=== PATIENT | male | born 1955 | race Caucasian/White ===

== ENCOUNTER 2024-03-10 00:56 | Day surgery (SDC) | payer MEDICARE, SELFPAY ==
[2024-02-18 15:43] VITALS: BMI 25.1
--- NOTE | 2024-03-10 13:54 | P.PNAN_ITS ---
Anes - Initial Pre Proc Eval Procedure: Operation Date: 03/10/24 15:00 Proposed Procedures p Flexible Sigmoidoscopy - Ciaran Valenzuela MD Date/Time: 03/10/24 13:54 Surgeon: Ciaran Valenzuela MD Pre Op Diagnosis: Full incontinence of Feces, CIBH,hemorrhoids Patient Data Age: 68 Gender: M Height: 1.83 m Weight: 84 kg Allergies Allergy/AdvReac Type Severity Reaction Status Date / Time ciprofloxacin [From Cipro] Allergy Unknown Unknown Verified 03/10/24 13:53 Home Medications Medication Instructions Recorded Confirmed Type fish, borage, flaxseed oils-omega 1 cap PO DAILY 01/06/24 02/18/24 History 3,6,9 comb no.1 1,200 mg capsule ([place] 3-6-9) gabapentin 300 mg capsule 300 mg PO DAILY 01/06/24 02/18/24 History ibuprofen 600 mg PO DAILY PRN Headache 01/06/24 02/18/24 History lisinopril 5 mg tablet 10 mg PO DAILY 01/06/24 02/18/24 History magnesium 200 mg tablet 400 mg PO DAILY 01/06/24 02/18/24 History primidone 250 mg tablet 250 mg PO QHS 01/06/24 02/18/24 History Patient hx anesthesia problems: none Family hx anesthesia problems: none Results Review: All pre-operative results and documents have been reviewed as part of the pre- operative evaluation. [facility] Past Medical History Medical History (Updated 03/10/24 @ 13:54 by Mainor Gale MD) HTN (hypertension) Surgical History Surgical History (Updated 03/10/24 @ 13:54 by Mainor Gale MD) History of total knee arthroplasty Family History Family History Father Cerebrovascular accident Thyroid disorder Mother Diabetes mellitus Social History Social History Smoking status: Never smoker Second hand tobacco smoke exposure: No Alcohol intake: never Substance use: never Substance use type: does not use Do You Feel Safe in your Home?: Yes Lack of Transportation: No Lack of Food: Never True Current Housing: I Have Housing Concerned About Future Housing: No Difficulty Paying Gas/Electric Bills: No Difficulty Paying for Meds: No Currently Unemployed: No Education: Bachelor's Degree Living arrangements: other Additional living arrangements comments: with sp Occupation/Education: retired Additional occupation/education comments: 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 Gender identity (if verbalized by the patient): Male Sexual Orientation (if Verbalized by the Patient): Straight or Heterosexual Spiritual care concerns: No Agree to blood products: Yes Anes - Eval Final PreProcedure Day of Procedure 03/10/24 13:54 Patient weight: normal Heart: regular rate and rhythm Lungs: clear to auscultation Airway: Mallampati scale class II Neurological: alert and oriented Last oral intake: >/= 8 hours ASA classification: II Emergent: no Anesthetic plan: proceed Anesthesia type and monitoring: general GIVS and standard monitoring Results Review: All pre-operative results and documents have been reviewed as part of the pre- operative evaluation. Informed Consent: The patient's anesthetic plan and its attendant risks and benefits were discussed with the patient/family/POA. Questions were solicited and answers provided to the satisfaction of the patient/family/POA.
[2024-03-10 13:55] VITALS: BP 116/82; PULSE 87; RESP 19; TEMP 36.4; O2SAT 99
--- NOTE | 2024-03-10 13:55 | PM.HPGS ---
History of Present Illness History of Present Illness Consent: Risks, benefits, and alternatives have been discussed and questions answered. Patient agrees to proceed with procedure. Chief complaint: Full incontinence of Feces, CIBH,hemorrhoids Narrative: Monty Ackerman is a 68 year old male here for sigmoidoscopy, last colonoscopy 2020 elsewhere. He noted change in bowel habits and states that he is having a formed non urgent bowel movement every 1-2 days but they often require straining and he does not feel like he is completely evacuating. During this time he also started having intermittent fecal leakage Review of Systems Review of Systems: All systems reviewed & are unremarkable except as noted in HPI and below PMFSH Past Medical History Medical History (Updated 03/10/24 @ 13:54 by Mainor Gale MD) HTN (hypertension) Surgical History Surgical History (Updated 03/10/24 @ 13:54 by Mainor Gale MD) History of total knee arthroplasty Family History Family History Father Cerebrovascular accident Thyroid disorder Mother Diabetes mellitus Social History Social History Smoking status: Never smoker Second hand tobacco smoke exposure: No Alcohol intake: never Substance use: never Substance use type: does not use Do You Feel Safe in your Home?: Yes Lack of Transportation: No Lack of Food: Never True Current Housing: I Have Housing Concerned About Future Housing: No Difficulty Paying Gas/Electric Bills: No Difficulty Paying for Meds: No Currently Unemployed: No Education: Bachelor's Degree Living arrangements: other Additional living arrangements comments: with sp Occupation/Education: retired Additional occupation/education comments: 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 Gender identity (if verbalized by the patient): Male Sexual Orientation (if Verbalized by the Patient): Straight or Heterosexual Spiritual care concerns: No Agree to blood products: Yes Meds Home Medications and Allergies Home Medications Medication Instructions Recorded Confirmed Type fish, borage, flaxseed oils-omega 1 cap PO DAILY 01/06/24 02/18/24 History 3,6,9 comb no.1 1,200 mg capsule ([place] 3-6-9) gabapentin 300 mg capsule 300 mg PO DAILY 01/06/24 02/18/24 History ibuprofen 600 mg PO DAILY PRN Headache 01/06/24 02/18/24 History lisinopril 5 mg tablet 10 mg PO DAILY 01/06/24 02/18/24 History magnesium 200 mg tablet 400 mg PO DAILY 01/06/24 02/18/24 History primidone 250 mg tablet 250 mg PO QHS 01/06/24 02/18/24 History Allergies Allergy/AdvReac Type Severity Reaction Status Date / Time ciprofloxacin [From Cipro] Allergy Unknown Unknown Verified 03/10/24 13:53 Exam Const: General: comfortable and no acute distress HENMT: Face/Nose/Sinus: Normal nares present Eyes: General: appearance normal, both eyes and all related structures Neck: Neck: no JVD Resp: Auscultation: clear to auscultation bilaterally Cardio: Rate: regular rate Rhythm: regular rhythm GI: Inspection: non-distended GI Palp: Yes Soft to palpation Skin: General skin exam: normal color Neuro: General: gait normal Speech: normal speech Extrem: General: normal to inspection Psych: Mental Status: mental status grossly normal Assessment and Plan Assessment and plan (1) Change in bowel habits: Code(s): R19.4 - Change in bowel habit Status: Acute Assessment and Plan: sigmoidoscopy
[2024-03-10] MEDS: LACTATED RINGERS 1,000 ML 150 ML IV CONT (13:58)
[2024-03-10 14:20] VITALS: BP 104/71; PULSE 74; RESP 16; O2SAT 99
[2024-03-10 14:30] VITALS: BP 104/72; PULSE 81; RESP 20; O2SAT 98
[2024-03-10 14:40] VITALS: BP 118/76; PULSE 70; RESP 20; O2SAT 99
== END 2024-03-10 14:52 | disposition home or self-care (01) ==
PROVIDERS: PCP Family Medicine; Visit Provider Internal Medicine Gastroenterology
PROC: 0DJD8ZZ Inspection of Lower Intestinal Tract, Via Natural or Artificial Opening Endoscopic (ICD-10-PCS; CPT 45330; principal; 2024-03-10 15:00)
DX: K57.30 Diverticulosis of large intestine without perforation or abscess without bleeding (principal); K64.8 Other hemorrhoids; K64.4 Residual hemorrhoidal skin tags; K62.3 Rectal prolapse; I10 Essential (primary) hypertension
CPT/HCPCS: 45380; 88305; J2704; J7120

== ENCOUNTER 2025-01-25 08:20 | Outpatient (CLI) | payer MEDICARE, SELFPAY ==
--- OUTSIDE RECORDS SUMMARY | 2025-01-25 08:23 | XMS_ITS | Clinical Summary ---
Author Organization [facility] Address [address] [place] [address] Care Team Providers Care Captain Fishing Vessel Name Role Phone Bayron Gill MD Primary Care Provider [phone] Medina Serrano MD Unavailable Vibha Martel MD Unavailable Allergies Active Allergy Reactions Criticality Noted Date Comments Ciprofloxacin Hives,Itching,Other (see comment) Low 02/03/2019 Medications aspirin EC 81 MG tablet Take 1 tablet (81 mg total) by mouth daily. Active Lanse-3 Fatty Acids (THE VERY FINEST FISH OIL) Liquid Take 1,600 mg by mouth daily. Active Magnesium Oxide -Mg Supplement 400 MG Cap Take 400 mg by mouth daily. Active Calcium Carb-Cholecalci ferol (CALCIUM HIGH POTENCY/VITAMIN D) 600-5 MG-MCG Tab Take 600 mg by mouth daily. Active Multiple Vitamin (MULTIVITAMIN ADULT OR) Take 1 tablet by mouth daily. Active primidone (MYSOLINE) 250 MG tablet Take 1 tablet (250 mg total) by mouth 3 (three) times daily. Active gabapentin (NEURONTIN) 300 MG capsule Take 1 capsule (300 mg total) by mouth 2 (two) times daily. 11/10/2024 Active lisinopril (PRINIVIL) 10 MG tablet Take 1 tablet (10 mg total) by mouth daily. Active tamsulosin (FLOMAX) 0.4 MG Cap Take 2 capsules (0.8 mg total) by mouth nightly. Active fluticasone propionate (FLONASE) 50 MCG/ACT nasal spray 2 sprays by Each Nostril route daily as needed for Allergies. 01/12/2025 Active ibuprofen (MOTRIN) 400 MG tablet Take 1 tablet (400 mg total) by mouth every 6 (six) hours as needed for Pain. Active acetaminophen (TYLENOL) 325 MG tablet Take 2 tablets (650 mg total) by mouth every 6 (six) hours as needed for Pain. Active Encounters Date Type Department Care Team Description 01/17/2025 Travel from Last 3 Months Social History Tobacco Use Types Packs/Day Years Used Date Smoking Tobacco: Never Smokeless Tobacco: Never Tobacco Cessation:Counseling Given: Not Answered Alcohol Use Standard Drinks/Week Comments Not Currently 0 (1 standard drink = 0.6 oz pur e alcohol) Sex and Gender Information Value Date Recorded Sex Assigned at Not on file Legal Sex Male 4:34 PM CDT Gender Identity Not on file Sexual Orientation Not on file Last Filed Vital Signs Vital Sign Reading Time Taken Comments Blood Pressure - - Pulse - - Temperature - - Respiratory Rate - - Oxygen Saturation - - Inhaled Oxygen Concentration - - Weight 88.5 kg (195 lb) 01/17/2025 3:52 PM CDT Height 182.9 cm (6') 01/17/2025 3:52 PM CDT Body Mass Index 26.45 01/17/2025 3:52 PM CDT Plan of Treatment Upcoming Encounters Date Type Department Care Team (Latest Contact Info) Description 02/07/2025 11:40 AM CDT Hospital Encounter [facility] [address] Vibha Martel MD [facility] [address] [place] [address] 02/07/2025 11:40 AM CDT Anesthesia [place] [address] Dionna Simon, DIRECTOR DATABASE [address] [place] [address] 02/07/2025 11:40 AM CDT - 02/07/2025 12:57 PM CDT Surgery [facility] OR [address] [facility] [place] [address] Vibha Martel MD [address] [place] [id number] TRANSANAL HEMORRHOIDAL DEARTERIALIZATION Scheduled Procedures Name Priority Associated Diagnoses Date/Ti me HEMORRHOIDECTOMY THD HEMORRHOID K64.8 02/07/2025 11:40 AM CDT Health Maintenance Due Date Last Done Comments Colorectal Cancer Screening Colonoscopy (10 Years) 1957 Hepatitis C 1975 Annual Medicare Wellness Visit 2022 DTaP, Tdap and Td Vaccines ( 2 - Td or Tdap) 07/28/2023 07/28/2013 COVID-19 Vaccine (2 - 2023-2 5 season) 2024 09/28/2020 RSV Immunization or 60+ Years (1 - 1-dose 75+ series) 2032 Pneumococcal Vaccine: 50+ Years Completed 01/06/2024 Zoster Vaccines Completed 07/13/2024, 01/06/2024 Meningococcal B Vaccine Aged Out No l onger eligible based on patient's age to complete this topic Meningococcal Vaccine Aged Out No felice russell eligible based on patient's age to complete this topic RSV Immunizations Under 20 Months Aged Out No longer eligible b ased on patient's age to complete this topic Goals Goal Patient Goal Type Associated Problems Recent Progress Patient-Stated? Author Autogenerat ed Goal Care Plan Autogenerated Problem No Annalise Brice RN Medical Devices Implanted Type Area Nuclear Operator Device Identifier Shelf Expiration Date Model / Serial / Lot Knee Components Knee Components Additional Health Concerns Active Problems Noted Date Diagnosed Date Autogenerated Problem 01/24/2025 Insurance [facility] Care Teams Captain Fishing Vessel Relationship Specialty Start Date End Date Bayron Gill MD [address] [place] [address] PCP - General FAMILY PRACTICE 01/18/25 Medina Serrano MD [address] [place] [address] NEUROLOGY 01/18/25 Vibha Martel MD [address] [place] [id number] Surgeon COLON/RECTAL SURGERY 01/18/25
--- OUTSIDE RECORDS SUMMARY | 2025-01-25 08:23 | XMS_ITS | Clinical Summary ---
Author Organization [place] [id number] [facility] Address [address] [place] [address] Care Team Providers Care Medicare Compliance Auditor Name Role Phone No, Physician Primary Care Provider [phone] Allergies Active Allergy Reactions Criticality Noted Date Comments Ciprofloxacin Itching,Other (See comments) Low 02/2024 Medications aspirin 81 mg enteric coated tablet Take 1 tablet (81 mg total) by mouth daily Active lisinopriL (PRINIVIL,ZESTR [place]) 10 mg tablet Take 1 tablet (10 mg total) by mouth daily Active tamsulosin (FLOMAX) 0.4 mg extended release capsule Take 1 capsule (0.4 mg total) by mouth daily Active primidone (MYSOLINE) 250 mg tablet Take 1 tablet (250 mg total) by mouth 2 (two) times a day 180 tablet 3 11/03/2023 Active primidone (MYSOLINE) 250 mg tablet TAKE 1 TAB THREE TIMES A DAY 270 tablet 3 09/29/2024 Active gabapentin (NEURONTIN) 300 mg capsule Take 1 capsule by mouth twice daily 180 capsule 11/10/2024 Active Active Problems Problem Noted Date Diagnosed Date Arthritis 11/03/2023 BPH (benign prostatic hyperplasia) 11/03/2023 Erectile dysfunction 11/03/2023 Hay fever 11/03/2023 Tremor 11/03/2023 Overview (11/03/2023): HANDS Essential tremor 11/13/2021 Assessment & Plan (09/29/2024 12:27 PM ASSISTANT FEDERAL PUBLIC DEFENDER): Mr. Pagan had more tremor that was bothersome. He had more trouble with fine motor tasks, writing and could spill his food occasionally. He was on gabapentin 300 mg bid and primidone 250 mg bid. He took propranolol with no benefit or side effects (unknown dose) and have not tried topiramate. He and his had questions re DBS therapy and their questions were answered. Recommendations Increase primidone 250 mg to 1 tab tid Continue gabapentin 300 mg bid Fall precaution Follow up in [address] Serrano as planned in May Assessment & Plan (11/03/2023 9:15 AM CDT): He had predominantly action and postural tremor worse with writing on the right side that was consistent with essential tremor. He had mild parkinsonism with left hand tremor, facial masking and slowness. He had no rigidity. Overall, he likely had essential tremor though we will need to watch the mild parkinsonism. I would continue this gabapentin and primidone for now. He would benefit from either left VIM DBS or HiFU and we discussed this today. He will think about it. We will send him information for both HIFU and DBS. Sinus bradycardia 06/11/2019 Overview (11/03/2023): 2ND TO BETA JAILENE Surgical History Surgery Date Site/Laterality Comments TOTAL KNEE ARTHROPLASTY HAND SURGERY KNEE ARTHROSCOPY Medical History Medical History Date Comments Hypertension Tremors of nervous system Family History Medical History Relation Name Comments Diabetes Brother Thyroid disease Daughter possible brain bleed Father Essential Tremor Mother Alaina Ackerman Hypothyroidism Mother Alaina Ackerman Memory loss Mother Alaina Ackerman Stroke Mother Alaina Ackerman Tremor Mother Alaina Ackerman Diabetes type II Sister No Known Problems Son Parkinsonism Neg Hx Relation Name Status Comments Brother Alive Daughter Alive Father (Age 89) Mother Alaina Ackerman Alive Sister Son Alive Social History Tobacco Use Types Packs/Day Years Used Date Smoking Tobacco: Never Smokeless Tobacco: Never Tobacco Cessation:Counseling Given: Not Answered Sex and Gender Information Value Date Recorded Sex Assigned at Not on file Legal Sex Male 2:39 PM ASSISTANT FEDERAL PUBLIC DEFENDER Gender Identity Not on file Sexual Orientation Not on file Obstetrics History Last Filed Vital Signs Vital Sign Reading Time Taken Comments Blood Pressure 132/81 11/03/2023 7:50 AM CDT Pulse 66 11/03/2023 7:50 AM CDT Temperature - - Respiratory Rate - - Oxygen Saturation - - Inhaled Oxygen Concentration - - Weight 87.5 kg (193 lb) 09/29/2024 10:33 AM ASSISTANT FEDERAL PUBLIC DEFENDER Height 182.9 cm (6') 09/29/2024 10:33 AM ASSISTANT FEDERAL PUBLIC DEFENDER Body Mass Index 26.18 09/29/2024 10:33 AM ASSISTANT FEDERAL PUBLIC DEFENDER Plan of Treatment Health Maintenance Due Date Last Done Comments Colon Cancer Screening-Colonoscopy 1957 Fall Risk Assessment 1957 Hepatitis C Screening 1957 Prostate Cancer Screening-PSA 1957 Hepatitis B Screening 1975 Well Visit 65+ 2022 DTaP/Tdap/Td Vaccine (2 - Td or Tdap) 07/28/202307/2013 Zoster Vaccine (2 of 2) 03/02/2024 01/06/2024 Covid-19 Vaccine (2 - season) 03/28/202410/2020 Depression Screening 11/02/2024 11/03/2023 Influenza Vaccine (#1) 2025 Pneumococcal vaccine 65+ Completed 01/06/2024 Insurance [facility] Address: [facility] [address] [place] [address] Care Teams Medicare Compliance Auditor Relationship Specialty Start Date End Date No, Physician PCP - General 10/27/23
--- OUTSIDE RECORDS SUMMARY | 2025-01-25 08:23 | XMS_ITS | Referral Summary ---
Author Organization [place] [address] [facility] Address [address] [place] [address] Care Team Providers Care Screw Machine Adjuster Automatic Name Role Phone No, Physician Primary Care Provider [phone] Allergies Active Allergy Reactions Criticality Noted Date [...] 11/13/2021 Assessment & Plan (09/29/2024 12:27 PM MAGNAFLUX OPERATOR): Mr. Pagan had more tremor that was [...] 06/11/2019 Overview (11/03/2023): 2ND TO BETA JAILENE Social History Tobacco Use Types Packs/Day Years Used Date Smoking Tobacco: Never Smokeless Tobacco: Never Tobacco Cessation:Counseling Given: Not Answered Sex and Gender Information Value Date Recorded Sex Assigned at Not on file Legal Sex Male 2:39 PM MAGNAFLUX OPERATOR Gender Identity Not on file Sexual Orientation Not on file Last Filed Vital Signs Vital Sign Reading Time Taken Comments Blood Pressure 132/81 11/03/2023 7:50 AM CDT Pulse 66 11/03/2023 7:50 AM CDT Temperature - - Respiratory Rate - - Oxygen Saturation - - Inhaled Oxygen Concentration - - Weight 87.5 kg (193 lb) 09/29/2024 10:33 AM MAGNAFLUX OPERATOR Height 182.9 cm (6') 09/29/2024 10:33 AM MAGNAFLUX OPERATOR Body Mass Index 26.18 09/29/2024 10:33 AM MAGNAFLUX OPERATOR Plan of Treatment Not on file Insurance [facility] MEDICARE [facility] Address: [facility] [address] [place] [address] Care Teams Screw Machine Adjuster Automatic Relationship Specialty Start Date End Date No, Physician PCP - General 10/27/23
== END 2025-01-25 08:21 | disposition home or self-care (01) ==
LOC: ANHAUDIO 08:21
PROVIDERS: PCP Family Medicine; Visit Provider Otolaryngology
DX: H90.3 Sensorineural hearing loss, bilateral (principal); H93.13 Tinnitus, bilateral
CPT/HCPCS: 92557; 92567